=== PATIENT | female | born 1980 | race African-American/Black ===

== ENCOUNTER 2019-07-16 16:49 | Inpatient (IN) | payer MEDICARE ==
[~2019-07-16] VITALS: Ht 167.6 cm; Wt 83.0 kg
[2019-07-16] MEDS ORDERED: ZOLPIDEM TARTRATE 10 MG TABLET PO PRN (23:30)
[2019-07-16] MEDS ORDERED: HALOPERIDOL 5 MG TABLET PO PRN (23:30)
[2019-07-16] MEDS ORDERED: LORazepam 2 MG TABLET PO PRN (23:30)
[2019-07-17 02:32] VITALS: BP 102/55
[2019-07-17 02:57] VITALS: BP 102/55
[2019-07-17] MEDS ORDERED: LOPERAMIDE HCL 2 MG CAPSULE PO PRN (09:30)
[2019-07-17] MEDS ORDERED: CloNIDine HCL 0.1 MG TABLET PO PRN (09:30)
[2019-07-17] MEDS ORDERED: PETROLATUM,WHITE 28 GM JELLY TP PRN (09:30)
[2019-07-17] MEDS ORDERED: ALBUTEROL SULFATE HFA 90 MCG/PUFF 8 GM INHALER IH PRN (09:30)
[2019-07-17] MEDS ORDERED: GuaiFENesin/D-METHORPHAN [SUGAR-FREE] 200-20MG/10 ML SYRUP UDCUP PO PRN (09:30)
[2019-07-17] MEDS ORDERED: MAG HYDROX/AL HYDROX/SIMETH ES 30 ML SUSPENSION UDCUP PO PRN (09:30)
[2019-07-17] MEDS ORDERED: DOCUSATE SODIUM 100 MG CAPSULE PO PRN (09:30)
[2019-07-17] MEDS ORDERED: IBUPROFEN 400 MG TABLET PO PRN (09:30)
[2019-07-17] MEDS ORDERED: ACETAMINOPHEN 325 MG TABLET PO PRN (09:30)
[2019-07-17] MEDS ORDERED: MAGNESIUM HYDROXIDE SUSPENSION 30 ML UDCUP PO PRN (09:30)
[2019-07-17] MEDS ORDERED: NICOTINE 14 MG/24 HOUR PATCH TD PRN (09:30)
[2019-07-17] MEDS ORDERED: ONDANSETRON HCL 4 MG TABLET PO PRN (09:30)
[2019-07-17 09:40] VITALS: BP 97/67
[2019-07-17 16:10] VITALS: BP 106/82
[2019-07-17] MEDS: RisperiDONE 1 MG TABLET PO SCH (20:21)
[2019-07-18] MEDS: RisperiDONE 1 MG TABLET PO SCH ×2 (09:00→20:27)
[2019-07-18 16:22] VITALS: BP 104/56
[2019-07-19] MEDS: RisperiDONE 1 MG TABLET PO SCH ×2 (08:48→20:34)
[2019-07-19 16:00] VITALS: BP 105/69
[2019-07-20] MEDS: RisperiDONE 1 MG TABLET PO SCH ×2 (09:00→21:00)
[2019-07-21] MEDS: RisperiDONE 1 MG TABLET PO SCH ×2 (08:39→21:00)
[2019-07-21] MEDS ORDERED: HALOPERIDOL LACTATE 5 MG/ML VIAL IM ONE (15:45)
[2019-07-21] MEDS ORDERED: LORazepam 2 MG/ML VIAL IM ONE (15:45)
[2019-07-21] MEDS ORDERED: DiphenhydrAMINE HCL 50 MG/ML VIAL IM ONE (15:45)
[2019-07-22] MEDS: RisperiDONE 1 MG TABLET PO SCH (09:00)
[2019-07-22] MEDS ORDERED: RISP1 PO (18:27)
== END 2019-07-22 18:30 | disposition short-term general hospital (02) | DRG 885 ==
LOC: EMS 16:49 → B2S 23:30 → EDBD 23:30
PROVIDERS: ADMIT Psychiatry & Neurology Child & Adolescent Psychiatry; ATTEND Psychiatry & Neurology Child & Adolescent Psychiatry
DX: F29 Unspecified psychosis not due to a substance or known physiological condition (principal); G93.40 Encephalopathy, unspecified; I95.9 Hypotension, unspecified; Z59.0 Homelessness; Z91.14 Patient's other noncompliance with medication regimen; Z91.19 Patient's noncompliance with other medical treatment and regimen
CPT/HCPCS: J1200; J1630; J2060

== ENCOUNTER 2019-07-22 17:54 | Inpatient (IN) | payer MEDICARE, MEDICAID ==
[2019-07-22] MEDS ORDERED: RISP1 PO (18:27)
[2019-07-22] MEDS ORDERED: HALOPERIDOL 5 MG TABLET PO PRN (18:30)
[2019-07-22] MEDS ORDERED: ZOLPIDEM TARTRATE 10 MG TABLET PO PRN (18:30)
[2019-07-22] MEDS ORDERED: INFLUENZA VIRUS VACCINE QVS 2019-20 (3YR+)/PF 60 MCG/0.5 ML SYRINGE IM ONE (19:15)
[2019-07-22] MEDS: RisperiDONE 1 MG TABLET PO SCH (20:43)
[2019-07-23] MEDS: RisperiDONE 1 MG TABLET PO SCH ×2 (08:14→20:27)
[2019-07-23] MEDS ORDERED: HALOPERIDOL LACTATE 5 MG/ML VIAL IM ONE (13:00)
[2019-07-23] MEDS ORDERED: LORazepam 2 MG/ML VIAL IM ONE (13:00)
[2019-07-23] MEDS ORDERED: DiphenhydrAMINE HCL 50 MG/ML VIAL IM ONE (13:00)
[2019-07-24] MEDS: RisperiDONE 1 MG TABLET PO SCH ×2 (08:59→20:30)
[2019-07-24] MEDS ORDERED: PETROLATUM,WHITE 28 GM JELLY TP PRN ×2 (11:15→17:00)
[2019-07-24] MEDS: LORazepam 2 MG TABLET PO PRN (14:36)
[2019-07-24] MEDS ORDERED: ACETAMINOPHEN 325 MG TABLET PO PRN (14:45)
[2019-07-24] MEDS ORDERED: CloNIDine HCL 0.1 MG TABLET PO PRN (17:00)
[2019-07-24] MEDS ORDERED: LOPERAMIDE HCL 2 MG CAPSULE PO PRN (17:00)
[2019-07-24] MEDS ORDERED: MAG HYDROX/AL HYDROX/SIMETH ES 30 ML SUSPENSION UDCUP PO PRN (17:00)
[2019-07-24] MEDS ORDERED: MAGNESIUM HYDROXIDE SUSPENSION 30 ML UDCUP PO PRN (17:00)
[2019-07-24] MEDS ORDERED: NICOTINE 14 MG/24 HOUR PATCH TD PRN (17:00)
[2019-07-24] MEDS ORDERED: ALBUTEROL SULFATE HFA 90 MCG/PUFF 8 GM INHALER IH PRN (17:00)
[2019-07-24] MEDS ORDERED: ONDANSETRON HCL 4 MG TABLET PO PRN (17:00)
[2019-07-24] MEDS ORDERED: DOCUSATE SODIUM 100 MG CAPSULE PO PRN (17:00)
[2019-07-25] MEDS: RisperiDONE 1 MG TABLET PO SCH ×2 (08:40→20:18)
[2019-07-25] MEDS: LORazepam 2 MG TABLET PO PRN (13:30)
[2019-07-25] MEDS: ACETAMINOPHEN 325 MG TABLET PO PRN (13:30)
[2019-07-26] MEDS: RisperiDONE 1 MG TABLET PO SCH ×2 (08:29→21:21)
[2019-07-27] MEDS ORDERED: LORazepam 2 MG/ML VIAL ONE (07:41)
[2019-07-27] MEDS ORDERED: HALOPERIDOL LACTATE 5 MG/ML VIAL ONE (07:42)
[2019-07-27] MEDS ORDERED: DiphenhydrAMINE HCL 50 MG/ML VIAL ONE (07:42)
[2019-07-27] MEDS ORDERED: LORazepam 2 MG/ML VIAL IM ONE (07:45)
[2019-07-27] MEDS ORDERED: HALOPERIDOL LACTATE 5 MG/ML VIAL IM ONE (07:45)
[2019-07-27] MEDS ORDERED: DiphenhydrAMINE HCL 50 MG/ML VIAL IM ONE (07:45)
[2019-07-27] MEDS: RisperiDONE 1 MG TABLET PO SCH ×2 (09:02→20:42)
[2019-07-28] MEDS: RisperiDONE 1 MG TABLET PO SCH ×2 (08:23→20:33)
[2019-07-28] MEDS: ACETAMINOPHEN 325 MG TABLET PO PRN (14:39)
[2019-07-28 16:35] VITALS: BP 91/62
[2019-07-29] MEDS: RisperiDONE 1 MG TABLET PO SCH ×2 (08:06→20:29)
[2019-07-29] MEDS: GuaiFENesin/D-METHORPHAN [SUGAR-FREE] 200-20MG/10 ML SYRUP UDCUP PO PRN (16:01)
[2019-07-29 16:02] VITALS: BP 103/79
[2019-07-29] MEDS: ACETAMINOPHEN 325 MG TABLET PO PRN (16:02)
[2019-07-30 00:42] VITALS: BP 102/59
[2019-07-30] MEDS: IBUPROFEN 400 MG TABLET PO PRN ×2 (00:44→16:28)
[2019-07-30] MEDS: RisperiDONE 1 MG TABLET PO SCH ×2 (08:07→20:32)
[2019-07-30 09:11] VITALS: BP 100/60
[2019-07-30 16:10] VITALS: BP 104/62
[2019-07-30] MEDS: GuaiFENesin/D-METHORPHAN [SUGAR-FREE] 200-20MG/10 ML SYRUP UDCUP PO PRN (16:28)
[2019-07-31 05:34] VITALS: BP 109/78
[2019-07-31] MEDS: RisperiDONE 1 MG TABLET PO SCH ×3 (08:31→21:00)
[2019-07-31 08:47] VITALS: BP 100/68
[2019-07-31] MEDS: IBUPROFEN 400 MG TABLET PO PRN (15:35)
[2019-07-31 16:11] VITALS: BP 119/59
[2019-08-01 04:17] VITALS: BP 124/75
[2019-08-01] MEDS: RisperiDONE 1 MG TABLET PO SCH ×2 (08:24→20:32)
[2019-08-01 08:31] VITALS: BP 103/67
[2019-08-01 16:07] VITALS: BP 109/82
[2019-08-02] MEDS: RisperiDONE 1 MG TABLET PO SCH ×2 (08:21→20:43)
[2019-08-02 16:19] VITALS: BP 112/78
[2019-08-03 08:15] VITALS: BP 125/65
[2019-08-03] MEDS: RisperiDONE 1 MG TABLET PO SCH ×3 (09:04→20:31)
[2019-08-04 00:53] VITALS: BP 122/78
[2019-08-04] MEDS: RisperiDONE 1 MG TABLET PO SCH ×2 (09:28→20:30)
[2019-08-05] MEDS: RisperiDONE 1 MG TABLET PO SCH ×2 (08:27→20:50)
[2019-08-05 09:13] VITALS: BP 103/65
[2019-08-06] MEDS: RisperiDONE 1 MG TABLET PO SCH ×2 (08:29→20:36)
[2019-08-07] MEDS: RisperiDONE 1 MG TABLET PO SCH (09:00)
[2019-08-07 11:59] VITALS: BP 92/64
[2019-08-07 13:25] VITALS: BP 97/68
[2019-08-09] MEDS ORDERED: LEVO500T2 PO (14:03)
[2019-08-09] MEDS ORDERED: RISP2TAB76 PO (14:04)
== END 2019-08-08 04:41 | disposition short-term general hospital (02) | DRG 885 ==
LOC: B2X 18:30
PROVIDERS: ADMIT Psychiatry & Neurology Child & Adolescent Psychiatry; ATTEND Psychiatry & Neurology Child & Adolescent Psychiatry
DX: F20.0 Paranoid schizophrenia (principal); G93.40 Encephalopathy, unspecified; Z59.0 Homelessness; I95.9 Hypotension, unspecified; Z91.14 Patient's other noncompliance with medication regimen; Z23 Encounter for immunization; Z20.828 Contact with and (suspected) exposure to other viral communicable diseases
CPT/HCPCS: J1200; J1630; J2060

== ENCOUNTER 2019-08-11 09:42 | Inpatient (IN) | payer MEDICARE, MEDICAID ==
[~2019-08-11] VITALS: Ht 165.1 cm; Wt 88.9 kg
[~2019-08-11 09:42] MED LIST: LEVO500T2 PO; RISP2TAB76 PO
[2019-08-11] MEDS ORDERED: HALOPERIDOL 5 MG TABLET PO PRN (13:30)
[2019-08-11] MEDS ORDERED: ZOLPIDEM TARTRATE 5 MG TABLET PO PRN (13:30)
[2019-08-11] MEDS ORDERED: LORazepam 2 MG TABLET PO PRN (13:30)
[2019-08-11] MEDS ORDERED: ZOLPIDEM TARTRATE 10 MG TABLET PO PRN (13:30)
[2019-08-11] MEDS ORDERED: TUBERCULIN, PURIFIED PROTEIN DERIVATIVE 5 TU/0.1 ML SYRINGE ID ONE (13:30)
[2019-08-11 13:57] VITALS: BP 100/65
[2019-08-11 16:30] VITALS: BP 107/66
[2019-08-11] MEDS: RisperiDONE 2 MG TABLET PO SCH (16:35)
[2019-08-12] MEDS: RisperiDONE 2 MG TABLET PO SCH ×2 (08:06→16:29)
[2019-08-12] MEDS: LEVOFLOXACIN 500 MG TABLET PO SCH (08:06)
[2019-08-12 08:08] VITALS: BP 100/62
[2019-08-12 08:35] LABS: BASOPHILS % (AUTO) 1.1 % (0.0-2.0); EOSINOPHILS % (AUTO) 1.8 % (1.0-6.0); HEMATOCRIT 36.3 % (36-46); HEMOGLOBIN 11.6 g/dL (12.0-16.0); LYMPHOCYTES # (AUTO) 1.7 K/uL (1.0-4.8); LYMPHOCYTES % (AUTO) 41.3 % (22.0-44.0); MEAN CORPUSCULAR HEMOGLOBIN 23.9 pg (26.0-34.0); MEAN CORPUSCULAR HGB CONC 31.9 G/dL (31.0-37.0); MEAN CORPUSCULAR VOLUME 75 fL (80-100); MONOCYTES # (AUTO) 0.2 K/uL (0.1-1.0); MONOCYTES % (AUTO) 6.1 % (2.0-9.0); NEUTROPHILS % (AUTO) 49.7 % (40.0-70.0); PLATELET COUNT (AUTO) 466 K/uL (150-450); RED BLOOD CELL COUNT(AUTO) 4.84 MIL/uL (4.00-5.20)
[2019-08-12 08:48] LABS: HEMOGLOBIN A1C 5.5 % (3.8-5.6)
[2019-08-12 09:14] LABS: ALANINE AMINOTRANSFERASE 26 U/L (12-78); ALBUMIN 3.1 g/dL (3.4-5.0); ALKALINE PHOSPHATASE 53 U/L (46-116); ANION GAP 9 mmol/L (8-16); ASPARTATE AMINOTRANSFERASE 18 U/L (15-37); BILIRUBIN,TOTAL 0.4 mg/dL (0.1-1.0); CALCIUM, TOTAL 8.8 mg/dL (8.8-10.5); CARBON DIOXIDE 26 mmol/L (22-29); CHLORIDE 103 mmol/L (98-107); CHOL/HDL RATIO 6.5 (3.9-5.7); CHOLESTEROL 183 mg/dL (131-200); CREATININE 0.76 mg/dL (0.60-1.30); FREE T4 (FREE THYROXINE) 0.95 ng/dL (0.76-1.46); GLOMERULAR FILTR. RATE CALC > 60 mL/min (>60); GLUCOSE,RANDOM 116 mg/dL (70-110); HDL CHOLESTEROL 28 mg/dL (40-60); LDL CHOL (CALC.) 127 mg/dL (0-130); POTASSIUM 4.3 mmol/L (3.5-5.1); SODIUM SERUM 138 mmol/L (136-145); THYROID STIMULATING HORMONE 0.57 uIU/mL (0.36-3.74); TOTAL PROTEIN, SERUM 7.1 g/dL (6.4-8.2); TRIGLYCERIDES 140 mg/dL (15-150); UREA NITROGEN, BLOOD 9 mg/dL (7-18)
[2019-08-12 16:16] VITALS: BP 106/68
[2019-08-13] MEDS: RisperiDONE 2 MG TABLET PO SCH ×2 (08:20→16:33)
[2019-08-13] MEDS: LEVOFLOXACIN 500 MG TABLET PO SCH (08:20)
[2019-08-13 08:59] LABS: BILIRUBIN,URINE NEGATIVE (NEGATIVE); GLUCOSE, URINE (UA) NEGATIVE (NEGATIVE); KETONES,URINE NEGATIVE (NEGATIVE); LEUKOCYTE ESTERASE ,URINE NEGATIVE (NEGATIVE); NITRATE,URINE NEGATIVE (NEGATIVE); OCCULT BLOOD,URINE NEGATIVE (NEGATIVE); PH,URINE 5.5 (5.0-8.0); PROTEIN,URINE NEGATIVE (NEGATIVE)
[2019-08-13 09:01] LABS: AMPHET/METH SCREEN,URINE NEGATIVE (NEGATIVE); BARBITURATE SCREEN, URINE NEGATIVE (NEGATIVE); BENZODIAZEPINES SCREEN,URINE NEGATIVE (NEGATIVE); CANNABINOID SCREEN,URINE NEGATIVE (NEGATIVE); COCAINE SCREEN,URINE NEGATIVE (NEGATIVE); METHADONE SCREEN, URINE NEGATIVE (NEGATIVE); OPIATE SCREEN,URINE POSITIVE (NEGATIVE)
[2019-08-13 09:02] LABS: APPEARANCE,URINE CLEAR (CLEAR)
[2019-08-13 09:05] LABS: PHENCYCLIDINE SCREEN,URINE NEGATIVE (NEGATIVE)
[2019-08-13 16:15] VITALS: BP 126/74
[2019-08-13] MEDS ORDERED: DOCUSATE SODIUM 100 MG CAPSULE PO PRN (16:15)
[2019-08-13] MEDS ORDERED: ALBUTEROL SULFATE HFA 90 MCG/PUFF 8 GM INHALER IH PRN (16:15)
[2019-08-13] MEDS ORDERED: GuaiFENesin/D-METHORPHAN [SUGAR-FREE] 200-20MG/10 ML SYRUP UDCUP PO PRN (16:15)
[2019-08-13] MEDS ORDERED: LOPERAMIDE HCL 2 MG CAPSULE PO PRN (16:15)
[2019-08-13] MEDS ORDERED: NICOTINE 14 MG/24 HOUR PATCH TD PRN (16:15)
[2019-08-13] MEDS ORDERED: MAGNESIUM HYDROXIDE SUSPENSION 30 ML UDCUP PO PRN (16:15)
[2019-08-13] MEDS ORDERED: ACETAMINOPHEN 325 MG TABLET PO PRN (16:15)
[2019-08-13] MEDS ORDERED: MAG HYDROX/AL HYDROX/SIMETH ES 30 ML SUSPENSION UDCUP PO PRN (16:15)
[2019-08-13] MEDS ORDERED: PETROLATUM,WHITE 28 GM JELLY TP PRN (16:15)
[2019-08-13] MEDS ORDERED: IBUPROFEN 400 MG TABLET PO PRN (16:15)
[2019-08-13] MEDS ORDERED: ONDANSETRON HCL 4 MG TABLET PO PRN (16:15)
[2019-08-13] MEDS ORDERED: CloNIDine HCL 0.1 MG TABLET PO PRN (16:15)
[2019-08-14] MEDS: RisperiDONE 2 MG TABLET PO SCH ×2 (08:27→16:19)
[2019-08-14 17:05] VITALS: BP 106/63
[2019-08-15 06:59] VITALS: BP 119/77
[2019-08-15] MEDS: RisperiDONE 2 MG TABLET PO SCH ×2 (08:41→16:36)
[2019-08-15 08:57] VITALS: BP 112/63
[2019-08-15] MEDS ORDERED: MINERAL OIL/PETROLATUM 120 GM CREAM TP PRN (15:30)
[2019-08-15 16:00] VITALS: BP 101/70
[2019-08-16 01:16] VITALS: BP 112/77
[2019-08-16] MEDS: RisperiDONE 2 MG TABLET PO SCH ×2 (08:56→16:48)
[2019-08-16 16:00] VITALS: BP 104/67
[2019-08-17 00:28] VITALS: BP 117/78
[2019-08-17] MEDS: RisperiDONE 2 MG TABLET PO SCH ×2 (08:26→16:32)
[2019-08-17 08:51] VITALS: BP 110/63
[2019-08-17 16:13] VITALS: BP 106/60
[2019-08-18] MEDS: RisperiDONE 2 MG TABLET PO SCH ×2 (08:27→16:36)
[2019-08-18 08:38] VITALS: BP 109/64
[2019-08-18 16:55] VITALS: BP 107/70
[2019-08-19] MEDS: RisperiDONE 2 MG TABLET PO SCH ×2 (08:03→16:43)
[2019-08-19 08:12] VITALS: BP 103/66
[2019-08-19 16:10] VITALS: BP 101/68
[2019-08-20 03:10] VITALS: BP 105/81
[2019-08-20] MEDS: RisperiDONE 2 MG TABLET PO SCH (08:31)
[2019-08-20 08:37] VITALS: BP 109/69
[2019-08-20] MEDS ORDERED: RISP2 PO ×2 (11:17→11:21)
== END 2019-08-20 12:40 | disposition home or self-care (01) | DRG 885 ==
LOC: B2X 13:48
PROVIDERS: ADMIT Psychiatry & Neurology Child & Adolescent Psychiatry; ATTEND Psychiatry & Neurology Child & Adolescent Psychiatry
DX: F20.0 Paranoid schizophrenia (principal); E87.1 Hypo-osmolality and hyponatremia; N39.0 Urinary tract infection, site not specified; D64.9 Anemia, unspecified; F19.10 Other psychoactive substance abuse, uncomplicated; F10.10 Alcohol abuse, uncomplicated; Z59.0 Homelessness; Z79.899 Other long term (current) drug therapy; Z71.41 Alcohol abuse counseling and surveillance of alcoholic; Z71.51 Drug abuse counseling and surveillance of drug abuser; Z91.19 Patient's noncompliance with other medical treatment and regimen
CPT/HCPCS: 80307; 83036; 84439; 84443

== ENCOUNTER 2019-08-23 19:41 | Emergency (ER) | payer MEDICARE, MEDICAID ==
[~2019-08-23] VITALS: Ht 165.1 cm; Wt 81.8 kg
[~2019-08-23 19:41] MED LIST changes: -LEVO500T2 PO; +RISP2TAB23 PO; -RISP2TAB76 PO
[2019-08-23 19:45] VITALS: BP 105/72
== END 2019-08-23 21:00 | disposition home or self-care (01) ==
LOC: EMS 19:45
DX: F20.9 Schizophrenia, unspecified (principal); F17.210 Nicotine dependence, cigarettes, uncomplicated
CPT/HCPCS: 99406

== ENCOUNTER 2020-11-11 13:03 | Emergency (ER) | payer MEDICAID, MEDICARE ==
[~2020-11-11] VITALS: Ht 165.1 cm; Wt 79.5 kg
[~2020-11-11 13:03] MED LIST changes: -RISP2TAB23 PO; +RISP2TAB45 PO
[2020-11-11 16:13] LABS: COVID AG,FIA SOURCE NASOPHARYNGEAL
[2020-11-11 16:53] LABS: BASOPHILS % (AUTO) 0.5 % (0.0-2.0); EOSINOPHILS % (AUTO) 0.7 % (1.0-6.0); HEMATOCRIT 37.1 % (36-46); HEMOGLOBIN 11.8 g/dL (12.0-16.0); LYMPHOCYTES # (AUTO) 1.1 K/uL (1.0-4.8); LYMPHOCYTES % (AUTO) 18.2 % (22.0-44.0); MEAN CORPUSCULAR HEMOGLOBIN 24.1 pg (26.0-34.0); MEAN CORPUSCULAR HGB CONC 31.9 G/dL (31.0-37.0); MEAN CORPUSCULAR VOLUME 76 fL (80-100); MONOCYTES # (AUTO) 0.5 K/uL (0.1-1.0); MONOCYTES % (AUTO) 8.4 % (2.0-9.0); NEUTROPHILS # (AUTO) 4.4 K/uL (1.8-7.7); NEUTROPHILS % (AUTO) 72.2 % (40.0-70.0); PLATELET COUNT (AUTO) 323 K/uL (150-450); RED BLOOD CELL COUNT(AUTO) 4.91 MIL/uL (4.00-5.20)
[2020-11-11 17:09] LABS: ANION GAP 7 mmol/L (8-16); CALCIUM, TOTAL 8.3 mg/dL (8.8-10.5); CARBON DIOXIDE 29 mmol/L (22-29); CHLORIDE 106 mmol/L (98-107); CREATININE 0.62 mg/dL (0.60-1.30); GLOMERULAR FILTR. RATE CALC > 60 mL/min (>60); GLUCOSE,RANDOM 116 mg/dL (70-110); POTASSIUM 3.1 mmol/L (3.5-5.1); SODIUM SERUM 142 mmol/L (136-145); UREA NITROGEN, BLOOD 9 mg/dL (7-18)
[2020-11-11 17:21] LABS: ALANINE AMINOTRANSFERASE 18 U/L (12-78); ALBUMIN 2.7 g/dL (3.4-5.0); ALKALINE PHOSPHATASE 50 U/L (46-116); ASPARTATE AMINOTRANSFERASE 16 U/L (15-37); BILIRUBIN,TOTAL 0.4 mg/dL (0.1-1.0); HCG,QUANTITATIVE < 1 mIU/mL (0-6); TOTAL PROTEIN, SERUM 6.2 g/dL (6.4-8.2)
[2020-11-11] MEDS ORDERED: POTASSIUM CHLORIDE 20 MEQ ER TABLET PO ONE (18:00)
[2020-11-11 18:25] VITALS: BP 122/78
== END 2020-11-11 18:31 | disposition home or self-care (01) ==
LOC: EMS 13:08
DX: K92.0 Hematemesis (principal); F17.200 Nicotine dependence, unspecified, uncomplicated; Z20.822 Contact with and (suspected) exposure to COVID-19; Z04.6 Encounter for general psychiatric examination, requested by authority
CPT/HCPCS: 36415; 80053; 84702; 85025; 87426; 99283; G0480